=== PATIENT | male | born 1940 | race Caucasian/White ===

== ENCOUNTER 2019-07-26 06:00 | Day surgery (SDC) | payer OTHER ==
[~2019-07-26] VITALS: Ht 170.2 cm; Wt 98.9 kg
[~2019-07-26 06:00] MED LIST: APIX5TAB PO; ATOR40TA71 PO; BUSP5TAB3 PO; CARV3.12 PO; CETI10TA57 PO; CYAN50008 PO; DIGO250T84 PO; DONE10TA43 PO; FURO40TA5 PO; GABA-531 PO; GLIP5TAB11 PO; LISI10TA7 PO; METF-444 PO; METF-527 PO; MIRA50TA PO; RISP2TAB22 PO; ROPI1TAB11 PO; SERT100T12 PO; SODIUM CHLORIDE 0.9% 1000ML 1,000 ML IV ONE; TAMS-1 PO; VITA200C5 PO
[2019-07-26 06:19] VITALS: BP 102/70
[2019-07-26] MEDS ORDERED: PROPOFOL 10 MG/ML 20ML VIAL IV ONE (06:28)
[2019-07-26] MEDS ORDERED: LIDOCAINE HCL 1% 20 ML VIAL ONE (06:29)
[2019-07-26 07:50] VITALS: BP 113/65
[2019-07-26 07:55] VITALS: BP 113/62
[2019-07-26 08:00] VITALS: BP 120/75
[2019-07-26 08:05] VITALS: BP 128/68
[2019-07-26 08:10] VITALS: BP 124/72
== END 2019-07-26 08:40 ==
LOC: DAH 06:00 → ENDO 06:00
PROVIDERS: ATTEND Internal Medicine Gastroenterology
DX: R63.4 Abnormal weight loss (principal); D12.0 Benign neoplasm of cecum; D12.2 Benign neoplasm of ascending colon; K29.50 Unspecified chronic gastritis without bleeding; K64.0 First degree hemorrhoids; K57.30 Diverticulosis of large intestine without perforation or abscess without bleeding; E11.9 Type 2 diabetes mellitus without complications; I48.91 Unspecified atrial fibrillation; E78.5 Hyperlipidemia, unspecified; F41.9 Anxiety disorder, unspecified; I50.9 Heart failure, unspecified; Z79.84 Long term (current) use of oral hypoglycemic drugs; Z79.899 Other long term (current) drug therapy; Z79.01 Long term (current) use of anticoagulants; Z72.89 Other problems related to lifestyle; Z87.891 Personal history of nicotine dependence; M19.90 Unspecified osteoarthritis, unspecified site; Z90.49 Acquired absence of other specified parts of digestive tract; Z96.659 Presence of unspecified artificial knee joint; Z98.890 Other specified postprocedural states
CPT/HCPCS: 43239; 45380; 45385; 82948 ×2; 88305; A4215; A4221; A4222; A4223; A4606; A4663; J2704; J7030

== ENCOUNTER 2019-08-12 06:25 | Day surgery (SDC) | payer OTHER ==
[2019-08-12] VITALS (7 sets, daily range): BP systolic 97–124; BP diastolic 58–78
[~2019-08-12] VITALS: Ht 170.2 cm; Wt 96.2 kg
[2019-08-12] MEDS ORDERED: PROPOFOL 10 MG/ML 20ML VIAL IV ONE ×2 (07:31→07:46)
[2019-08-12] MEDS ORDERED: PHENYLEPHRINE HCL 10 MG/ML 1ML VIAL IV ONE (07:31)
--- NOTE | 2019-08-12 08:20 | NUR ---
dc pt dc home via w[facility],no distress noted. pt denied any pain or discomforts. pt accompanied by spouse, dc instructions reinforced again to pt/ spouse, intructed to/ followup with dr. michelle to hold eliquis for 72 hours. and continue rest of home meds. they both verbalized understanding.
== END 2019-08-12 08:20 | disposition home or self-care (01) ==
LOC: ENDO 06:25 → DAH 06:25 → ENDO 08:20
PROVIDERS: ATTEND Internal Medicine
DX: R19.7 Diarrhea, unspecified (principal); D12.5 Benign neoplasm of sigmoid colon; D12.0 Benign neoplasm of cecum; D12.3 Benign neoplasm of transverse colon; K62.1 Rectal polyp; K57.30 Diverticulosis of large intestine without perforation or abscess without bleeding; K64.0 First degree hemorrhoids; E78.5 Hyperlipidemia, unspecified; F41.9 Anxiety disorder, unspecified; E11.9 Type 2 diabetes mellitus without complications; M19.90 Unspecified osteoarthritis, unspecified site; I48.91 Unspecified atrial fibrillation; I50.9 Heart failure, unspecified; Z79.899 Other long term (current) drug therapy; Z90.49 Acquired absence of other specified parts of digestive tract; Z96.659 Presence of unspecified artificial knee joint
CPT/HCPCS: 45381; 45385; 82948 ×2; 88305; A4215; A4221; A4222; A4223; A4606; A4615; A4649; A4663; J2370; J2704 ×2; J7030

== ENCOUNTER → 2019-08-18 | Outpatient (CLI) | payer OTHER ==
[~2019-08-18] MED LIST changes: -SODIUM CHLORIDE 0.9% 1000ML 1,000 ML IV ONE
--- NOTE | 2019-08-18 10:00 | NUR ---
MBSS COMPLETED. -S/S OF ASPIRATION. RECOMMEND REGULAR TEXTURE, THIN LIQUIDS; PILLS WHOLE WITH LIQUIDS. Addendum: 08/18/19 at 1340 by ARCHIE WILLIAM, [facility] Amended: Links added.
== END | disposition home or self-care (01) ==
LOC: RAH 09:38
PROVIDERS: ATTEND Internal Medicine
DX: R13.13 Dysphagia, pharyngeal phase (principal); K21.9 Gastro-esophageal reflux disease without esophagitis; E11.9 Type 2 diabetes mellitus without complications; I50.9 Heart failure, unspecified
CPT/HCPCS: 74230; 92611

== ENCOUNTER 2019-09-02 05:30 | Day surgery (SDC) | payer OTHER ==
[~2019-09-02] VITALS: Ht 170.2 cm; Wt 98.4 kg
[2019-09-02] MEDS ORDERED: SODIUM CHLORIDE 0.9% 1000ML 1,000 ML IV ONE (05:53)
[2019-09-02] MEDS ORDERED: PROPOFOL 10 MG/ML 20ML VIAL IV ONE (06:18)
[2019-09-02] MEDS ORDERED: LIDOCAINE HCL 1% 20 ML VIAL ONE (06:20)
[2019-09-02 06:26] VITALS: BP 110/74
[2019-09-02] MEDS ORDERED: OMEP40CA13 PO (06:43)
[2019-09-02] MEDS ORDERED: GLYCOPYRROLATE 0.2 MG/ML 5 ML VIAL ONE (07:44)
[2019-09-02 07:45] VITALS: BP 84/53
[2019-09-02 08:00] VITALS: BP 92/59
[2019-09-02 08:15] VITALS: BP 114/75
== END 2019-09-02 08:22 | disposition home or self-care (01) ==
LOC: ENDO 05:30 → DAH 05:30 → ENDO 08:22
PROVIDERS: ATTEND Internal Medicine
DX: R63.4 Abnormal weight loss (principal); K63.5 Polyp of colon; K57.30 Diverticulosis of large intestine without perforation or abscess without bleeding; K29.70 Gastritis, unspecified, without bleeding; I48.91 Unspecified atrial fibrillation; I50.9 Heart failure, unspecified; E78.5 Hyperlipidemia, unspecified; F41.9 Anxiety disorder, unspecified; I11.0 Hypertensive heart disease with heart failure; M19.90 Unspecified osteoarthritis, unspecified site; E11.9 Type 2 diabetes mellitus without complications; G47.30 Sleep apnea, unspecified; G30.9 Alzheimer's disease, unspecified; F02.80 Dementia in other diseases classified elsewhere, unspecified severity, without behavioral disturbance, psychotic disturbance, mood disturbance, and anxiety; Z86.010 Personal history of colon polyps; Z79.84 Long term (current) use of oral hypoglycemic drugs; Z79.899 Other long term (current) drug therapy; Z79.01 Long term (current) use of anticoagulants; Z90.49 Acquired absence of other specified parts of digestive tract; Z96.659 Presence of unspecified artificial knee joint; Z98.890 Other specified postprocedural states; Z99.89 Dependence on other enabling machines and devices
CPT/HCPCS: 45380; 82948 ×2; 88305; A4215; A4221; A4222; A4223; A4606; A4615; A4663; J2704; J3490; J7030

== ENCOUNTER 2019-10-19 07:25 | Day surgery (SDC) | payer MEDICARE ==
[~2019-10-19] VITALS: Ht 170.2 cm; Wt 96.6 kg
[~2019-10-19 07:25] MED LIST changes: -BUSP5TAB3 PO; +DIGO250T73 PO; -DIGO250T84 PO; +OMEP40CA13 PO; +SODIUM CHLORIDE 0.9% 1000ML 1,000 ML IV ONE
[2019-10-19 09:05] VITALS: BP 107/49
[2019-10-19] MEDS ORDERED: PROPOFOL 10 MG/ML 20ML VIAL IV ONE (10:15)
[2019-10-19 10:27] VITALS: BP 99/61
[2019-10-19 10:32] VITALS: BP 112/66
[2019-10-19 10:37] VITALS: BP 109/66
[2019-10-19 10:42] VITALS: BP 120/67
[2019-10-19 10:47] VITALS: BP 113/63
== END 2019-10-19 11:06 | disposition home or self-care (01) ==
LOC: DAH 07:25 → ENDO 07:25
PROVIDERS: ATTEND Internal Medicine Gastroenterology
DX: R63.4 Abnormal weight loss (principal); K31.89 Other diseases of stomach and duodenum; I48.91 Unspecified atrial fibrillation; K29.70 Gastritis, unspecified, without bleeding; E11.9 Type 2 diabetes mellitus without complications; I50.9 Heart failure, unspecified; F41.9 Anxiety disorder, unspecified; E78.5 Hyperlipidemia, unspecified; M19.90 Unspecified osteoarthritis, unspecified site; Z86.010 Personal history of colon polyps; Z79.01 Long term (current) use of anticoagulants; Z79.899 Other long term (current) drug therapy; Z96.659 Presence of unspecified artificial knee joint; Z90.49 Acquired absence of other specified parts of digestive tract; Z98.890 Other specified postprocedural states
CPT/HCPCS: 43239; 82948 ×2; 88305; A4215; A4221; A4222; A4223; A4606; A4620; A4663; J2704; J7030